=== PATIENT | female | born 1965 | race Caucasian/White ===

== ENCOUNTER 2018-07-21 07:45 | Emergency (ER) | payer OTHER ==
--- NOTE | 2018-07-21 09:42 | UC ---
Skin Complaint HPI - HPI Summary HPI Summary: HAD IV/ORAL CONTRAST YESTERDAY FOR A CT SCAN. HAS KNOWN SENSITIVITY TO CONTRAST SO WAS PREMEDICATED WITH PREDNISONE BUT LATER THAT DAY DEVELOPED ITCHY RED RASH ON FACE. PERSISTED OVERNIGHT. DENIES ANY SOB OR AIRWAY CONCERNS. NO FEVER. NO TONGUE/LIP SWELLING. NO OTHER NEW EXPOSURES BUT STATES SHE DID EAT AT [employer] THAT DAY. - History of Current Complaint Chief Complaint: UCRas Time Seen by Provider: 07/21/18 09:31 Stated Complaint: RASH TO FACE Hx Obtained From: Patient Hx Last Menstrual Period: 02/05/12 Onset/Duration: Gradual Onset, Lasting Hours, Still Present Timing: Constant Onset Severity: Moderate Current Severity: Moderate Pain Intensity: 0 Pain Scale Used: 0-10 Numeric Location: Face Character: Pruritus, Redness Aggravating Factor(s): Touch Alleviating Factor(s): Nothing Associated Signs & Symptoms: Positive: Rash. Negative: Nausea, Difficulty Breathing, Fever, Cough, Wheezing, Hoarseness, Throat Tightening, Syncope, Drainage, Tenderness - Allergy/Home Medications Allergies/Adverse Reactions: Allergies Allergy/AdvReac Type Severity Reaction Status Date / Time citalopram Allergy Hives Verified 07/20/18 12:51 Radioactive drugs Allergy Severe See Comment Uncoded 06/07/13 13:08 PMH/Surg Hx/FS Hx/Imm Hx Endocrine History: Diabetes Cardiovascular History: Hypertension - Surgical History Surgical History: Yes Surgery Procedure, Year, and Place: tonsilectctomy and [place] - Social History Alcohol Use: Rare Substance Use Type: Excessive Caffeine Substance Use Comment - Amount & Last Used: 4- 1,000ml coffees a day Smoking Status (MU): Never Smoked Tobacco Have You Smoked in the Last Year: No - Immunization History Most Recent Influenza Vaccination: 01/25/13 Most Recent Tetanus Shot: unk Most Recent Pneumonia Vaccination: 3 years ago Review of Systems All Other Systems Reviewed And Are Negative: Yes Constitutional: Positive: Negative Skin: Positive: Rash Respiratory: Positive: Negative Cardiovascular: Positive: Negative Gastrointestinal: Positive: Negative Physical Exam Triage Information Reviewed: Yes Appearance: Well-Appearing, No Pain Distress, Well-Nourished Vital Signs: Initial Vital Signs Temp 98 F 07/21/18 07:54 Pulse 77 07/21/18 07:54 Resp 16 07/21/18 07:54 BP 154/74 07/21/18 07:54 Pulse Ox 100 07/21/18 07:54 Vital Signs Reviewed: Yes Eyes: Positive: Conjunctiva Clear ENT: Positive: Hearing grossly normal, Other - NO TONGUE OR LIP SWELLING Neck: Positive: Supple Respiratory Exam: Normal Cardiovascular Exam: Normal Abdomen Description: Positive: Soft Musculoskeletal: Positive: No Edema Neurological: Positive: Alert Psychological: Positive: Age Appropriate Behavior Skin: Positive: Other - FACE AND UPPER CHEST/NECK WITH CONFLUENT MAGDA/ ERYTHEMA. SMALL COLD SORE RIGHT NOSTRIL. Course/Dx - Course Course Of Treatment: PATIENT'S FACIAL RASH LIKELY THE RESULT OF ADMINISTRATION OF IV AND ORAL CONTRAST EARLIER THAT DAY. LESS LIKELY TO BE DUE TO FOOD AT [employer]. GIVEN HER UNCONTROLLED DIABETES WILL HOLD OFF ON SYSTEMIC STEROIDS FOR TREATMENT. PATIENT DOES NOT HAVE ANY RESPIRATORY DISTRESS OR ANGIOEDEMA. WILL TREAT MORE CONSERVATIVELY WITH ANTIHISTAMINES AND HYDRATION. PATIENT TO GO TO THE ER WITHOUT FAIL IF HER SYMPTOMS WORSEN. PT ALSO REQUESTING TOPICAL ZOVIRAX FOR COLD SORE IN RIGHT NOSTRIL. - Diagnoses Provider Diagnosis: Reaction to contrast media, Cold sore Discharge - Sign-Out/Discharge Documenting (check all that apply): Patient Departure All imaging exams completed and their final reports reviewed: No Studies - Discharge Plan Condition: Stable Disposition: HOME Prescriptions: Acyclovir OINT 5%(NF) [Zovirax Oint 5%(NF)] 1 applic TOPICAL .SIX TIMES A DAY # 1 tube diphenhydrAMINE HCl [Diphenhydramine HCl] 50 mg PO BID PRN #30 capsule PRN Reason: Allergy Symptoms Famotidine 40 mg PO DAILY PRN #30 tablet PRN Reason: Allergy Symptoms Fexofenadine HCl 180 mg PO DAILY PRN #30 tablet PRN Reason: Allergy Symptoms Patient Education Materials: General Allergic Reaction (ED) Forms: *Work Release Referrals: Diana Aaron MD [Primary Care Provider] - If Needed Additional Instructions: USE DAILY HYPOALLERGENIC MOISTURIZING LOTION AVOID HEAT AND HOT WATER TAKE ANTIHISTAMINE DAILY (180MG FEXOFENADINE IN THE MORNING, 50MG BENADRYL AT NIGHT) DO NOT SCRATCH KEEP COOL, CLEAN AND DRY OKAY TO USE OTC TOPICAL HYDROCORTISONE SPARINGLY 2-3 TIMES DAILY ON ITCHY SPOTS. KEEP AWAY FROM MUCOUS MEMBRANES. WILL NOT GIVE SYSTEMIC STEROIDS DUE TO UNCONTROLLED DIABETES. STAY WELL HYDRATED. GO TO THE ED WITHOUT FAIL IF YOU DEVELOP ANY RESPIRATORY INVOLVEMENT, TONGUE/ LIP SWELLING, FEVER, NAUSEA/VOMITING OR ANY OTHER CONCERNING SYMPTOMS. TOPICAL ZOVIRAX FOR YOUR NASAL COLD SORE REQUESTED. AVOID CONTACT WITH OTHERS DURING AN OUTBREAK DUE TO POTENTIAL FOR TRANSMISSION. - Billing Disposition and Condition Condition: STABLE Disposition: Home
[2018-07-21 10:04] VITALS: BP 147/81
== END 2018-07-21 10:03 | disposition home or self-care (01) ==
LOC: UCEAST 07:45
DX: L98.8 Other specified disorders of the skin and subcutaneous tissue (principal); L25.2 Unspecified contact dermatitis due to dyes; T50.8X5A Adverse effect of diagnostic agents, initial encounter; I10 Essential (primary) hypertension; E11.9 Type 2 diabetes mellitus without complications; Z88.8 Allergy status to other drugs, medicaments and biological substances; Y92.9 Unspecified place or not applicable; Z91.041 Radiographic dye allergy status
CPT/HCPCS: 99212; G0463